=== PATIENT | female | born 1995 | race Caucasian/White ===

== ENCOUNTER → 2022-06-04 07:25 | Outpatient (CLI) | payer OTHER, SELFPAY ==
[2022-06-04 09:01] LABS: Add Manual Diff / Slide Review NO; Basophils Absolute Auto 0 /uL (0-100); Basophils Percent Auto 0.4 % (0-2); Eosinophils Absolute Auto 100 /uL (0-450); Eosinophils Percent Auto 1.1 % (2-4); Hemoglobin 13.3 g/dL (12.0-16.0); Lymphocytes Absolute Auto 1800 /uL (1100-4500); Mean Corpuscular HGB Conc 35.1 % (30-36); Mean Corpuscular Hemoglobin 31.7 PG (26-34); Mean Corpuscular Volume 90.2 fL (80-100); Monocytes Absolute Auto 600 /uL (0-900); Monocytes Percent Auto 6.7 % (3-14); Neutrophils Absolute Auto 6800 /uL (1500-7000); Neutrophils Percent Auto 72.8 % (50-75); Platelet Count 236 X10^3/uL (150-400); Red Blood Cell Count 4.21 X10^6/uL (4.0-5.2); Red Cell Distribution Width 12.9 % (11.6-14.8); White Blood Cell Count 9.4 X10^3/uL (4.5-11.0)
[2022-06-04 09:24] LABS: Appearance Urine UA CLEAR; Bilirubin Urine UA NEGATIVE (NEGATIVE); Color Urine UA YELLOW; Glucose Urine UA TRACE g/dL (Negative); Ketones Urine UA NEGATIVE (NEGATIVE); Leukocyte Esterase Urine UA NEGATIVE (NEGATIVE); Nitrite Urine UA NEGATIVE (Negative); Occult Blood Urine UA TRACE-INTACT (Negative); Protein Urine UA NEGATIVE (Negative); Specific Gravity Urine UA 1.025 (1.000-1.035); Urobilinogen Urine UA 0.2 E.U./dL (0.2)
[2022-06-05 04:54] LABS: RPR Screen Non Reactive (Non Reactive)
[2022-06-05 09:09] LABS: Varicella IgG Antibody 380 index (Immune >165)
[2022-06-05 17:05] LABS: Hepatitis B Surface Antigen NEGATIVE s/c (NEGATIVE); Rubella Antibody IgG 10.5 IU/mL (>15)
[2022-06-05 17:15] LABS: HIV 1 & 2 Ab/Ag 4th Gen Combo NEGATIVE (NEGATIVE); Hep C Virus Ab w/Reflex Quant NEGATIVE s/c (NEGATIVE)
== END ==
PROVIDERS: Obstetrics & Gynecology; Referring Provider Family Medicine; Visit Provider Family Medicine
DX: Z34.81 Encounter for supervision of other normal pregnancy, first trimester (principal)
CPT/HCPCS: 36415; 80055; 81003; 86787; 86803; 86850; 86900; 86901; 87086; 87389

== ENCOUNTER → 2022-06-27 11:39 | Outpatient (ROUT) | payer OTHER, SELFPAY ==
[2022-06-27 13:10] LABS: Urine N gonorrhoeae NOT DETECTED
[2022-06-27 13:23] LABS: Urine Chlamydia NOT DETECTED
== END ==
PROVIDERS: Visit Provider Obstetrics & Gynecology
DX: Z34.81 Encounter for supervision of other normal pregnancy, first trimester (principal); Z3A.13 13 weeks gestation of pregnancy
CPT/HCPCS: 87491; 87591

== ENCOUNTER → 2022-07-25 10:44 | Outpatient (CLI) | payer OTHER, SELFPAY ==
[2022-07-25 12:05] LABS: Specimen Label y
[2022-07-27 21:09] LABS: AFP Value 67.6 ng/mL (.); Gest Age on Col Date 17.1 weeks (.); Insulin Dep Diabetes No (.); OSBR Risk 1IN 965 (.); Results Report (.); Test Results *Screen Negative* (.)
== END ==
PROVIDERS: Referring Provider Obstetrics & Gynecology; Visit Provider Obstetrics & Gynecology
DX: Z34.82 Encounter for supervision of other normal pregnancy, second trimester (principal); Z3A.17 17 weeks gestation of pregnancy
CPT/HCPCS: 36415; 82105

== ENCOUNTER → 2022-08-15 10:40 | Outpatient (CLI) | payer OTHER, SELFPAY ==
--- NOTE | 2022-08-15 10:42 | DI.US.S_ITS ---
PROCEDURE: US OB >= 14 WEEKS FETUS INDICATIONS: 20 WEEK ANATOMY SCAN OUTSIDE/PRIOR DATING DATA: Last menstrual period (LMP): 03/27/2022. LMP-based estimated date of delivery (RICCI): 01/01/2023. First dating scan (date and location): 05/21/2022. Estimated date of delivery (RICCI) from first dating scan: 01/03/2023. TECHNIQUE: Real-time scanning was performed of the fetus, with image documentation and biometric measurements. Endovaginal scanning: Not performed COMPARISON: None. FINDINGS: General: A single living intrauterine gestation is present. Presentation: Variable. Placenta: Placental position is anterior , without previa. At the left aspect of the placenta there is an avascular region which is hypoechoic to the placenta and appears retroplacental. It measures approximately 7.6 x 2.6 x 2.2 centimeters. Amniotic fluid index: 12.4 cm, normal range is 5-24 cm. Single deepest vertical pocket is 3.9 cm. heart rate: 155 beats per minute. Maternal cervical canal: 4.8 cm long. Normal lower limit is 2.5 cm. biometrics: Biparietal diameter: 4.7 centimeters, 20 weeks 1 day Head circumference: 17.6 centimeters, 20 weeks 1 day Abdominal circumference: 15.8 centimeters, 21 weeks 0 days Femur length: 3.1 centimeters, 19 weeks 5 days Composite gestational age from present scan: 20 weeks 2 days Estimated weight and percentile: 348 grams, 57th percentile Anatomic survey: Neuro: Ventricles are non-dilated at less than 10 mm. Cisterna magna is normal at 3-11 mm. Cerebellum is normal in size and morphology. Nuchal skin fold: Normal at less than 6 mm between 14-21 weeks gestational age. Face: Nose and lips, facial profile are not well visualized Spine: No evidence for spina bifida. Heart: 4-chambered heart is present. Ventricular outflow tracts not well visualized. Diaphragm: Diaphragm is intact. Stomach: Left-sided stomach is present. Kidneys: No hydronephrosis. Normal is less than 5 mm in 2nd trimester, less than 7 mm in 3rd trimester. Cord: 3-vessel cord has orthotopic insertion. Bladder: Normal in size. Extremities: All 4 extremities identified. IMPRESSION: 1. Single living intrauterine . 2. nose/lips, facial profile, and ventricular outflow tracts were not well visualized. Short-term follow-up for completion of the anatomy survey and follow-up of the below placental finding is recommended. 3. A 7.6 centimeter hypoechoic region is present at the left aspect of the placenta. This may represent a placental lee but subacute abruption is difficult to exclude. Attention on follow-up is recommended. 4. Visualized anatomy is within normal limits. We strive to produce accurate, complete, and clear reports of imaging services. To assist us in improving patient care, this report was composed using standard report templates and voice recognition software. Therefore, it may contain abnormal punctuation, insertions and/or omissions. Occasional wrong-word or sound-alike substitutions may occur. Though we review the report and make efforts to correct it, we do recommend that the report be read carefully in proper context to recognize any text inaccuracies. Dictated by: Norman Cole M.D. on 08/15/2022 at 20:05 Approved by: Norman Cole M.D. on 08/15/2022 at 20:21
== END ==
PROVIDERS: Referring Provider Obstetrics & Gynecology; Visit Provider Obstetrics & Gynecology
DX: Z34.82 Encounter for supervision of other normal pregnancy, second trimester (principal); Z3A.20 20 weeks gestation of pregnancy
CPT/HCPCS: 76811

== ENCOUNTER → 2022-09-03 09:16 | Outpatient (CLI) | payer OTHER, SELFPAY ==
--- NOTE | 2022-09-03 09:16 | DI.US.S_ITS ---
PROCEDURE: US OB FOLLOW UP INDICATIONS: FOLLOW UP ANATOMY AND RETROPLACENTAL AREA OUTSIDE/PRIOR DATING DATA: Last menstrual period (LMP): March 27, 2022. LMP-based estimated date of delivery (RICCI): January 01, 2023. First dating scan (date and location): May 21, 2022. Estimated date of delivery (RICCI) from first dating scan: January 03, 2023. TECHNIQUE: Real-time scanning was performed of the fetus, with image documentation and biometric measurements. COMPARISON: [facility], US, US OB <= 14 WEEKS FETUS, 05/21/2022, 15:39. Ob ultrasound dated August 15, 2022 FINDINGS: General: A single living intrauterine gestation is present. Presentation: Variable. Placenta: Placental position is anterior , without previa. Amniotic fluid index: 14.3 cm, normal range is 5-24 cm. Single deepest vertical pocket is 4.7 cm. heart rate: 160 beats per minute. Maternal cervical canal: 5.0 cm long. Normal lower limit is 2.5 cm. biometrics: Clinically estimated gestational age: 22 weeks, 6 days Anatomic survey: Face: Nose and lips, facial profile are normal. Heart: 4-chambered heart is present, with normal ventricular outflow tracts. IMPRESSION: 1. Single live intrauterine gestation in variable position. 2. Nose and lips, facial profile, and 4 chambered heart and outflow tracts have a normal sonographic appearance. We strive to produce accurate, complete, and clear reports of imaging services. To assist us in improving patient care, this report was composed using standard report templates and voice recognition software. Therefore, it may contain abnormal punctuation, insertions and/or omissions. Occasional wrong-word or sound-alike substitutions may occur. Though we review the report and make efforts to correct it, we do recommend that the report be read carefully in proper context to recognize any text inaccuracies. Dictated by: Nidhi Stanton M.D. on 09/03/2022 at 12:44 Approved by: Nidhi Stanton M.D. on 09/03/2022 at 12:49
== END ==
PROVIDERS: Referring Provider Obstetrics & Gynecology; Visit Provider Obstetrics & Gynecology
DX: Z36.2 Encounter for other antenatal screening follow-up (principal); Z3A.22 22 weeks gestation of pregnancy
CPT/HCPCS: 76816

== ENCOUNTER → 2022-10-10 10:24 | Outpatient (CLI) | payer OTHER, SELFPAY ==
[2022-10-10 12:30] LABS: Hematocrit 35.4 % (36-46)
[2022-10-10 12:37] LABS: GTT (PREG) 1 Hour PP 50gm Dose 130 mg/dL (76-139)
== END ==
PROVIDERS: Referring Provider Obstetrics & Gynecology; Visit Provider Obstetrics & Gynecology
DX: Z34.82 Encounter for supervision of other normal pregnancy, second trimester (principal); Z3A.26 26 weeks gestation of pregnancy
CPT/HCPCS: 36415; 82950; 85014; 85018

== ENCOUNTER → 2022-12-06 09:41 | Outpatient (CLI) | payer OTHER, SELFPAY ==
[2022-12-07 15:27] LABS: Strep Grp B PCR NEG for Grp B Strep
== END ==
PROVIDERS: Visit Provider Physician Assistant Medical
DX: Z34.83 Encounter for supervision of other normal pregnancy, third trimester (principal); Z3A.36 36 weeks gestation of pregnancy
CPT/HCPCS: 87653

== ENCOUNTER 2022-12-30 19:22 | Inpatient (IN) | payer OTHER, SELFPAY ==
[2022-12-30] MEDS: miSOPROStoL 100 MCG TABLET 25 MCG PO (22:18)
[2022-12-30 22:31] VITALS: BP 116/69
[2022-12-30 23:16] LABS: Add Manual Diff / Slide Review NO; Basophils Absolute Auto 0 /uL (0-100); Basophils Percent Auto 0.2 % (0-2); Eosinophils Absolute Auto 100 /uL (0-450); Eosinophils Percent Auto 1.1 % (2-4); Hematocrit 35.8 % (36-46); Hemoglobin 12.2 g/dL (12.0-16.0); Lymphocytes Absolute Auto 2100 /uL (1100-4500); Lymphocytes Percent Auto 17.4 % (25-40); Mean Corpuscular HGB Conc 34.1 % (30-36); Mean Corpuscular Volume 90.8 fL (80-100); Monocytes Absolute Auto 900 /uL (0-900); Monocytes Percent Auto 7.7 % (3-14); Neutrophils Absolute Auto 8900 /uL (1500-7000); Neutrophils Percent Auto 73.6 % (50-75); Platelet Count 210 X10^3/uL (150-400); Red Blood Cell Count 3.94 X10^6/uL (4.0-5.2); Red Cell Distribution Width 14.7 % (11.6-14.8)
[2022-12-31] MEDS: LACTATED RINGERS 1,000 ML 100 ML IV ×3 (02:29→17:19)
--- NOTE | 2022-12-31 08:53 | DIET.CONS2 ---
Dietary Inpatient Consultation Note Admission Date: 12/30/2022 19:22 Pt called kitchen during breakfast service requesting: cottage cheese c fruit, honey yogurt and a breakfast sandwich. Pt diet order stated Clear Liquid. RD called Nurse station to inquire if pt was safe for solid PO intake at this time. Nursing stated yes, changed pt to General Diet at 8:51am. Kitchen to send breakfast to patient per request. Diet: 12/30/22 Breakfast Clear Liquid Diet Diet Modifications: 12/31/22 Lunch General (Regular) Diet Diet Modifications: Electronically Signed by: Stephanie Stuart 12/31/22 08:53 Clinical Dietitian [address] [address]
--- NOTE | 2022-12-31 12:42 | PM.OBPNLAB ---
Date/Time Date Patient Seen: 12/31/22 Time Patient Seen: 12:40 Pain Control Pain control: tolerating well Comments: Feeling pressure with contractions, resting well in between. Utilizing nitrous oxide to good effect. Pelvic Exam Dilation (cm): 8 Effacement (%): 100 station: 0 Amniotic membrane status: Ruptured Contractions Monitor mode: External Contraction frequency (min): 5 Status status: Category ll Heart Rate Baseline: 140 Monitor Accelerations: Present Monitor Decelerations: Variable (intermittent) Monitor Variability: Moderate Assessment and Plan Assessment: active labor Plan: continuous present management Comments: 27 year old at 39+6 weeks in active labor. SROM with clear fluid last night about 6 PM. GBS negative. She is coping well though making slow progress since this morning. Suspect acynclitic. Encouraged position change. Did not discuss epidural with patient but may want to consider if not progressing over the next 1-2 hours.
[2022-12-31] MEDS: OXYTOCIN PREMIX 30 UNIT/500 ML PLAST..BAG IV (14:41)
--- NOTE | 2022-12-31 15:16 | PM.OBHP.IH.1 ---
OB HPI Date/Time Date of admission: 12/30/22 Date Patient Seen: 12/31/22 Time Patient Seen: 07:50 History of Present Condition Chief complaint: Eval of Labor RICCI Calculator Estimated Delivery Date Method Current WG Current Estimate 01/01/23 LMP (Certain) 39w 6d Other Estimates 01/03/23 Ultrasound #1 39w 4d Estimated Gestational Age (weeks): 39+6 : 2 Para: 0 Narrative: Called to see pt for decel for 4 min. care: good care, initiated at week # (7), number of visits (13) and pounds weight gain (52) Dating criteria OB: LMP confirmed by 1st trimester US Ultrasounds: normal 1st trimester US and normal mid trimester US Obstetrical complications: none Medical complications OB: none Indications Indication for induction OB: other (non medical) Preadmission Labs Last OB Lab Results: Blood Type A Positive 12/30/22 22:15 Antibody Screen Negative 12/30/22 22:15 Hematocrit 35.8 % (36-46) L 12/30/22 22:15 Hemoglobin 12.2 g/dL (12.0-16.0) 12/30/22 22:15 Hepatitis B Surface Antigen Negative s/c (NEGATIVE) 06/04/22 08:02 Hepatitis C Antibody Negative s/c (NEGATIVE) 06/04/22 08:02 Rubella Antibody 10.5 IU/mL (>15) L 06/04/22 08:02 Varicella-Zoster IgG Antibody 380 index (Immune >165) 06/04/22 08:02 Glucose 1 Hour 130 mg/dL (76-139) 10/10/22 10:41 Group B Streptococcus (PCR) Neg for grp b strep 12/06/22 09:41 -: Chlamydia screen: negative, Gonorrhea screen: negative and Urine: negative -: PAP smear: Normal Genetic Screens: Cell-free DNA: Normal (normal male) and Alpha-fetoprotein: Normal External Labs -: Urine: negative Prior (ies) Past Pregnancies Del. Date GA/Weeks Labor Lgth Wt Sex Route Outcome Anesthesia Place Delv Breastfeed Preg Comp Name 07/28/15 14 elective [place] Delivery Date: 07/28/15 Last Updated by: Teresa Valdez RN outpatient D&C Evaluation Evaluation Baseline heart rate: 135 Variability: Moderate (11-25) monitor accelerations: Present Monitor Decelerations: Prolonged (x 4 min) Contraction Frequency (minutes): 3 Uterine Contraction Intensity: Strong/Firm Status: Category ll Dilation (cm): 7 Effacement (%): 100 station: -1 [facility] Medical History (Updated 12/20/22 @ 11:15 by Ronald Vasquez MD) Herpes (~2020) Tinea versicolor (~2016) Surgical History (Updated 07/24/22 @ 21:11 by Mattie Sawyer) S/P ASA/PRK (advanced surface ablation photorefractive keratectomy) (~02/2018) [place] teeth extracted (~04/2019) Family History (Updated 07/24/22 @ 21:19 by Mattie Sawyer) Mother Diabetes mellitus Hypothyroid Sleep apnea Father Hypertension Obstructive sleep apnea Diabetes mellitus Hypercalcemia Grandfather Cancer Diabetes mellitus Hypertension Grandmother Diabetes mellitus Alzheimers disease Hyperlipidemia Hypertension Grandfather Diabetes mellitus Colon cancer Obesity Hypertension Prostate cancer BBB (bundle branch block) History of heart disease Hyperlipidemia Mental health problem History of pacemaker Grandmother Hyperlipidemia Glaucoma BBB (bundle branch block) History of heart disease Hypertension Mental health problem Family/Other Diabetes mellitus Sister Diabetes mellitus History of PCOS Secondary amenorrhea Mental health problem Sister Asthma Social History marital status: number of children: 0 household members: friend(s) lives independently: Yes housing: house pets and animals: Yes (3 dogs) education level: high school occupational status: employed (active duty, on a desk job for ) current occupational exposures/hazards: No special kishore needs: No travel history: recent ([place], [place]) seatbelt use: always water heater temp set < 120 deg: Yes working smoke detector in home: Yes fire extinguisher in home: Yes carbon monox detector in home: Yes firearms in home: No do you feel safe at home: Yes Smoking Status: Former smoker second hand exposure: Yes (roommate vapes) alcohol intake: former substance use type: marijuana (many years ago, no longer) during the past year weight has: remained stable well-balanced diet: daily or most days daily servings fruits/ve or more times/day caffeine: No Type(s) of exercise: walking and aerobic additional social history: Previously treated with Zoloft, Vistaril, and Trazodone; weaned off all meds in February. Meds Home Medications and Allergies Home Medications Medication Instructions Recorded Confirmed Type prenat.vits,dean,vyp-xwsw-qbrnp 1 tab PO DAILY 05/16/22 12/30/22 History sertraline 50 mg tablet 50 mg PO DAILY #90 tabs 10/25/22 12/30/22 Rx valacyclovir 500 mg tablet 500 mg PO Q12H #60 tabs 11/26/22 12/30/22 Rx Allergies Allergy/AdvReac Type Severity Reaction Status Date / Time Penicillins Allergy Intermediate Hives Verified 12/27/22 15:28 OB Exam Narrative Exam Narrative: Patient on hands and knees, no acute distress Fundal height: 40 cm Estimated weight: 8 lb Extremities: Trace edema Objective Labs 12/30/22 22:15 Labs: Laboratory Results - last 24 hr 12/30/22 12/30/22 22:15 22:15 WBC 12.0 H RBC 3.94 L Hgb 12.2 Hct 35.8 L MCV 90.8 MCH 31.0 MCHC 34.1 RDW 14.7 Plt Count 210 Neut % (Auto) 73.6 Lymph % (Auto) 17.4 L Mclennan % (Auto) 7.7 Eos % (Auto) 1.1 L Baso % (Auto) 0.2 Neut # (Auto) 8900 H Lymph # (Auto) 2100 Mclennan # (Auto) 900 Eos # (Auto) 100 Baso # (Auto) 0 Blood Type A Positive Antibody Screen Negative Assessment and Plan Assessment and Plan Assessment and Plan narrative: Assessment: 27-year-old 2 para 0 at 39-,6/7 weeks gestation status post Cytotec x1 last evening Active labor 4 minute deceleration, which has resolved Patient tolerating contractions with nitrous oxide Plan: scalp electrode placed O2 per face mask Fluid bolus Time Spent with Patient Total time spent with greater than 50% in coordination of care (as documented) at patient's floor/unit and/or counseling patient:: 25 - 35 minutes
--- NOTE | 2022-12-31 17:01 | PM.OBPNLAB ---
Date/Time Date Patient Seen: 12/31/22 Time Patient Seen: 17:00 Pain Control Pain control: epidural Pelvic Exam Dilation (cm): 8 Effacement (%): 100 station: 0 Amniotic membrane status: Ruptured Contractions Monitor mode: External Contraction frequency (min): 7 Contraction intensity: Strong/Firm Status status: Category l Heart Rate Baseline: 150 Monitor Accelerations: Present Monitor Decelerations: Absent Monitor Variability: Moderate Assessment and Plan Plan: continuous present management Comments: 27-year-old at 39 weeks and 6 days gestation. She presented after SROM last night at approximately 6:30 p.m. with clear fluid. She progressed well overnight and was 7-8 cm at 8:00 a.m. this morning. Progress has been minimal throughout the day with contractions ranging 5-7 minutes apart. Patient wished for a low intervention labor but agreed to Pitocin which was started at 2:45 p.m.. Shortly after starting Pitocin patient requested an epidural and Pitocin was shut off. She is now comfortable with an epidural and in agreement with Pitocin augmentation. Suspect acynclitic position of the head preventing cervix from dilating. Encouraged frequent position change and peanut ball to help facilitate descent and rotation. Titrate Pitocin per protocol. Dr. Khalil will assume care overnight. Transition of care was discussed with the patient and her mother.
[2022-12-31] MEDS: diphenhydrAMINE 50 MG/ML VIAL 25 MG IV (17:11)
[2022-12-31] MEDS: FENT 2MCG/ML BUPIV 0.125% EPI 200 MCG/100 ML PLAST..BAG 12 MCG EPIDURAL (21:35)
--- NOTE | 2022-12-31 23:12 | P.PNOB_ITS ---
Date/Time Date Patient Seen: 12/31/22 Time Patient Seen: 23:12 Pain Control Pain control: tolerating well and epidural Pelvic Exam Dilation (cm): 7 Effacement (%): 100 station: 0 Amniotic membrane status: Ruptured Comments: Cervix is 7-8 cm and circumferentially edematous, head well applied, + caput, position JADEN, sutures overriding Contractions Contractions on admission: irregular Monitor mode: External Pitocin rate (mU/min): 6 Contraction frequency (min): 3 Contraction duration (min): 1 Contraction pattern: Regular Contraction phase: Resting Contraction intensity: Strong/Firm Status status: Category l Heart Rate Baseline: 145 Monitor Accelerations: Present Monitor Decelerations: Absent Monitor Variability: Moderate Assessment and Plan Assessment: induction ongoing Plan: Comments: Call responsibilitites assumed due to attending provider illness. Chart reviewed and patient examined after 4 hours of pitocin restart/augmentation with no significant change from exams this AM. Options discussed at length with patient and her mother who is at the bedside with the patient. After discussion of alternatives, risks, benefits, and potential complications, will proceed to p rimary CS by LTC due to secondary arrest of labor due to CPD. OR/Staff notified, consent executed.
[2022-12-31] MEDS: CEFAZOLIN 2 GM/100 ML PREMIX 100 ML IV (23:33)
[2022-12-31] MEDS: CITRIC ACID/SODIUM CITRATE 15 ML SOLUTION 30 ML PO (23:33)
[2023-01-01] VITALS (11 sets, daily range): BP systolic 89–105; BP diastolic 34–57; PULSE 68–107; RESP 11–21; TEMP 36.4–37.9; O2SAT 98–99
[2023-01-01] MEDS: AZITHROMYCIN 500 MG in DEXTROSE 5% IN WATER 250 ML 250 MG IV
--- NOTE | 2023-01-01 00:06 | SUR.OPER ---
Supine on Padded OR bed, head on pillow, safety belt at thigh, arms secured on padded arm boards at <90 degrees abduction. Bump under right buttock. Legs uncrossed with pillow under knees, gel pad to heels, tape over blanket to lower legs.
--- NOTE | 2023-01-01 00:28 | SUR.OPER ---
VIABLE MALE INFANT DELIVERED AT 0017. CORD BLOOD AND PLACENTA TO OB WITH RN
--- NOTE | 2023-01-01 01:18 | P.OP_ITS ---
Operative Date/Time/Diagnoses Date of procedure: 12/31/22 Time of procedure: 23:55 Pre-op diagnosis: Intrauterine gestation, genao, 39+6 weeks EGA Secondary arrest of labor due to cephalo-pelvic dysproportion Post-op diagnosis: same Procedure & Clinicians Procedure: Primary section (Low transverse cervical) Same procedure as scheduled: Yes Indications: 27 yo at 39+6 weeks EGA w/ secondary arrest at C/7/-8/0 for greater than 6 hrs. despite adequate, pitocin augmented contractions. Surgeon: Gadiel Khalil Click Yes if Unassisted: Yes Reason for Store Specialist: Store Specialist required for the safe, effective, and timely completion of this surgery. Anesthesia Type: Spinal Operative Notes Findings: Viable male infant BW [], Apgars []/[], delivered from the [] presentation. Normal gravid anatomy. Closure Type: primary Specimen(s): cord blood Intraoperative meds administered: Ketorolac and Pitocin Applied: Catheter Estimated Blood Loss (mL): 800 Blood products transfused: none Procedure in detail: With her informed written consent, the patient was taken to the operating room and placed in the supine position for a primary section procedure, for the indication(s) above. The abdomen was prepped and draped in the usual manner for section and a pre-surgical timeout was taken per [facility] OR protocol. Once effective anesthesia was confirmed, a 15 cm transverse Pfannenstiel incision was made in the skin and taken down through the subcutaneous tissues to the deep fascia. The deep fascia was incised transver sely, the rectus abdominal eyes bluntly and sharply, and the peritoneal cavity entered without difficulty. The lower uterine segment was visualized and the position/presentation palpated. A transverse incision at or above the vesicouterine reflection was made with Metzenbaum scissors and transverse hysterotomy performed near the midline. Amniotomy revealed clear fluid. The incision was extended bilaterally with digital traction and the infant was delivered without difficulty from the vertex presentation. The infant was vigorous and cord clamping delayed for 60 seconds. The placenta was delivered intact using gentle cord traction and fundal massage.The uterine cavity was then cleared of any clot/debris first with a sloppy wet lap tape followed by a dry lap tape. Ring forceps were then applied to the angles and the midline of the incised MEAGHAN. A primary closure of the uterus was then accomplished with #1 CCGS in a running interlocking stitch followed by a 2nd layer of #1 CCGS in a running interlocking imbricating stitch. No additional sutures was/were required to achieve complete hemostasis. Once pelvic hemostasis was assured, the bladder flap and anterior peritoneum were closed with a running 2-0 Vicryl suture and the fascia closed with #1 Vicryl in a running stitch initiated at both angles and tying separately near the midline. The subcutaneous tissues were reapproximated with 2-0 plain catgut suture using inverted interrupted stitches. The skin edges were then brought together with 4-0 Monocryl in a subcuticular closure and the incision was reinforced with 1 Steri-Strips. An appropriate compression dressing was applied and the patient transferred to PACU for recovery and subsequent transfer to the Center for recuperation. Complications: none [place] Baby 1: Infant Gender: Male Presentation: vertex Position: Left Occiput Anterior Placental Delivery Description: Spontaneous Cord Vessel Description: 3 Vessels score (1 min): 8 score (5 min): 9 weight: 8 lb 7.558 oz Post-operative Condition: stable Disposition: PACU Aftercare: routine postop
[2023-01-01] MEDS: KETOROLAC 30 MG/ML VIAL IV ×3 (03:58→15:31)
[2023-01-01] MEDS: ACETAMINOPHEN 325 MG TABLET 650 MG PO ×4 (03:59→21:33)
[2023-01-01] MEDS: OXYCODONE IR 5 MG TABLET PO ×3 (08:01→19:40)
[2023-01-01] MEDS: SERTRALINE 50 MG TABLET PO (09:51)
[2023-01-01] MEDS: PRENATAL VIT,CALC/IRON/FOLIC 1 TABLET 1 TAB PO (09:51)
--- NOTE | 2023-01-01 13:31 | PM.OBPN.1 ---
Subjective - OB Subjective Patient comments: no complaints, pain well controlled, incisional pain and tolerating diet; no flatus present [place] baby status: doing well [place] feeding status: exclusively breast feeding Narrative: Doing well overnight. Bleeding has steadily decreased. also doing well. She denies nausea and vomiting and is tolerating regular diet. Date Patient Seen: 01/01/23 Time Patient Seen: 13:32 Exam Vital Signs (past 8 hours): Oxygen Delivery Method Room Air Const General: cooperative and comfortable Nutritional Appearance: average body habitus Orientation: alert and oriented x3 HENMT Head: normal to inspection, atraumatic and abrasion Ears: hearing grossly normal bilaterally Face and sinus: face symmetric Eyes General: appearance normal, both eyes and all related structures Conjunctivae: conjunctivae normal Sclera: sclerae normal EOM: EOM intact bilaterally Neck Neck: normal visual inspection Resp Effort & Inspection: normal respiratory effort and able to speak in complete sentences Auscultation: clear to auscultation bilaterally Cardio Rate: regular rate Rhythm: regular rhythm Heart Sounds: S1 normal, S2 normal and no murmurs GI Inspection: normal to inspection and incision (Surgical dressing clean and dry) Palpation: soft, no hepatosplenomegaly, mass (Fundus firm, minimally tender, U -2.) and tender (Mild, diffuse postsurgical tenderness) Auscultation: hypoactive bowel sounds External Female Exam: other (No significant bleeding noted) Extrem General: no calf tenderness Psych Appearance: grossly normal Mental Status: mental status grossly normal Speech and Movement: speech and movement normal Mood: congruent mood Affect: normal affect Attitude: cooperative Thought Process: normal Thought Content: normal Judgment: judgment good Objective Labs 12/30/22 22:15 Assessment & Plan Plan day: 0 plan OB: routine postop care Comments: Anticipate possible discharge, 01/02/2023. Time Spent With Patient Time: Total time spent is greater than 50% in coordination of care (as documented) at patient's floor/unit and/or counseling patient: Time with patient: 15-24 minutes
[2023-01-01] MEDS: ACYCLOVIR 400 MG TABLET PO ×2 (15:32→21:33)
[2023-01-01 16:15] LABS: Add Manual Diff / Slide Review NO; Basophils Absolute Auto 100 /uL (0-100); Basophils Percent Auto 0.3 % (0-2); Eosinophils Absolute Auto 100 /uL (0-450); Eosinophils Percent Auto 0.3 % (2-4); Hematocrit 29.6 % (36-46); Lymphocytes Absolute Auto 1400 /uL (1100-4500); Lymphocytes Percent Auto 7.8 % (25-40); Mean Corpuscular HGB Conc 33.8 % (30-36); Mean Corpuscular Hemoglobin 30.8 PG (26-34); Mean Corpuscular Volume 91.2 fL (80-100); Monocytes Absolute Auto 1500 /uL (0-900); Monocytes Percent Auto 8.2 % (3-14); Neutrophils Absolute Auto 15400 /uL (1500-7000); Neutrophils Percent Auto 83.4 % (50-75); Platelet Count 196 X10^3/uL (150-400); Red Blood Cell Count 3.24 X10^6/uL (4.0-5.2); Red Cell Distribution Width 14.8 % (11.6-14.8); White Blood Cell Count 18.4 X10^3/uL (4.5-11.0)
[2023-01-01] MEDS: IBUPROFEN 600 MG TABLET PO (21:57)
[2023-01-02] MEDS: IBUPROFEN 600 MG TABLET PO ×2 (03:56→10:36)
[2023-01-02] MEDS: ACETAMINOPHEN 325 MG TABLET 650 MG PO ×2 (03:57→10:35)
[2023-01-02] MEDS: SERTRALINE 50 MG TABLET PO (09:09)
[2023-01-02] MEDS: ACYCLOVIR 400 MG TABLET PO (09:09)
[2023-01-02] MEDS: PRENATAL VIT,CALC/IRON/FOLIC 1 TABLET 1 TAB PO (09:09)
--- NOTE | 2023-01-02 13:11 | P.DS_ITS ---
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 Despite Pitocin augmentation and placement of c ontinuous lumbar epidural catheter for pain relief in labor, the patient failed to progress beyond 7-8 cm where she remained for approximately 6 hours. Late on the evening of 12/31/2022 the decision was made to proceed to primary section due to secondary arrest of labor due to cephalopelvic disproportion. She was delivered by primary section early on the morning of 01/01/2023 and details of that procedure well summarized on my operative note of that date. Following her surgery both mother and baby have done extremely well with the mother having prompt return of bowel and bladder function, she is ambulating independently, tolerating regular diet, and her pain is well controlled with oral pain medications. She will be discharged at this time to home in an afebrile normotensive condition after counseling regarding precautionary symptoms, limitations activity, medications, plans for follow-up which will be 1 week. Medications at discharge will include continuation of all of her pre delivery medications and oxycodone 5 mg p.o. q.6 hours as needed pain dispense 20, ibuprofen 600 mg p.o. q.6 hours as needed pain, dispense 30 with 2 refills, and Colace 200 mg p.o. b.i.d. as needed constipation. Peripartum Data Delivery Method: Section Laceration Description: None Episiotomy description: None Procedures: Continuous lumbar epidural placement Primary section, low transverse cervical complications: none 1: Gender: Male Disposition of : home Status at Discharge Cognitive/behavioral status at discharge: oriented Functional status at discharge: independent ambulation Overall status at discharge: patient is progressing back to baseline Time Spent with Patient Time attestation: Total time spent providing and/or coordinating discharge services: Time spent: Less than 30 minutes Objective Labs 01/01/23 15:22 Labs: Laboratory Results - last 24 hr 01/01/23 15:22 WBC 18.4 H D RBC 3.24 L Hgb 10.0 L Hct 29.6 L MCV 91.2 MCH 30.8 MCHC 33.8 RDW 14.8 Plt Count 196 Neut % (Auto) 83.4 H Lymph % (Auto) 7.8 L Gordon % (Auto) 8.2 Eos % (Auto) 0.3 L Baso % (Auto) 0.3 Neut # (Auto) 74454 H Lymph # (Auto) 1400 Gordon # (Auto) 1500 H Eos # (Auto) 100 Baso # (Auto) 100 Exam Vital Signs (past 8 hours): Oxygen Delivery Method Room Air Const General: cooperative and comfortable Nutritional Appearance: average body habitus Orientation: alert and oriented x3 HENMT Head: normal to inspection, atraumatic and abrasion Ears: hearing grossly normal bilaterally Face and sinus: face symmetric Eyes General: appearance normal, both eyes and all related structures Conjunctivae: conjunctivae normal Sclera: sclerae normal EOM: EOM intact bilaterally Neck Neck: normal visual inspection Resp Effort & Inspection: normal respiratory effort and able to speak in complete sentences Auscultation: clear to auscultation bilaterally Cardio Rate: regular rate Rhythm: regular rhythm Heart Sounds: S1 normal, S2 normal and no murmurs GI Inspection: normal to inspection and incision (Compression dressing removed, incision intact, AquaCel applied) Palpation: soft, no hepatosplenomegaly, mass (Firm, mildly tender fundus, U -4) and tender (Mild, diffuse postsurgical tenderness) Auscultation: normal bowel sounds External Female Exam: other (No significant bleeding noted) Extrem General: no calf tenderness Psych Appearance: grossly normal Mental Status: mental status grossly normal Speech and Movement: speech and movement normal Mood: congruent mood Affect: normal affect Attitude: cooperative Thought Process: normal Thought Content: normal Judgment: judgment good Discharge Plan Discharge Plan Patient Disposition: Home Provider Discharge Comment: Please review the written instructions you received when you were discharged from the hospital. Your follow-up appointment will be scheduled for 1 week after your and I forward to seeing you then. If however in the meanwhile you have any issues, concerns, or questions, please contact me either through the office phone at [phone], or via the patient portal. Discharge orders & Medications Prescriptions: New ibuprofen 600 mg Tablet 600 mg PO Q6H Qty: 30 2RF oxycodone 5 mg Tablet 5 mg PO Q4H PRN (Reason: Pain, Moderate (4-6)) Qty: 20 0RF docusate calcium 240 mg capsule 240 mg PO BID PRN (Reason: constipation) Qty: 30 0RF Continued sertraline 50 mg tablet 50 mg PO DAILY Qty: 90 2RF valacyclovir 500 mg tablet 500 mg PO Q12H Qty: 60 1RF prenat.vits,dean,kzt-knew-nsmgp Tablet 1 tab PO DAILY Follow up/Referrals: ProviderRay [Primary Care Provider] - Gadiel Khalil MD [Physician] - Discharge Health Status Multidrug resistant organism: No MDRO Diet/Activity/Treatments Diet: Diet as Tolerated Activity: As tolerated Other treatments: [id number]-[id number] Tylenol may also be used for additional pain relief. Kiza-gyv-[id number] MiraLax may also be used as needed for constipation Skin/Wound/Dressing Care Report to your healthcare provider any signs of infection, such as:: chills, fever, increased pain, unusual drainage and unusual redness Dressing: Dressing will be removed at the time of your 1 week postop visit Visit Report/Discharge Packet Instructions: DI for , DI for and Nipple Soreness, DI for Prescription Opioid Use Discharge Data Primary Care Provider: ProviderRay
[2023-01-02] MEDS: MEASLES,MUMPS,RUBELLA VACC/PF 0.5 ML VIAL SUBCUT (14:09)
== END 2023-01-02 15:30 | disposition home or self-care (01) | DRG 788 ==
PROVIDERS: Obstetrics & Gynecology; Admitting Provider Obstetrics & Gynecology; Referring Provider Obstetrics & Gynecology; Visit Provider Obstetrics & Gynecology
PROC: 10D00Z1 Extraction of Products of Conception, Low, Open Approach (ICD-10-PCS; CPT 59514; principal; 2022-12-31 23:45)
DX: O65.4 Obstructed labor due to fetopelvic disproportion, unspecified (principal); O62.1 Secondary uterine inertia; O42.12 Full-term premature rupture of membranes, onset of labor more than 24 hours following rupture; O76 Abnormality in fetal heart rate and rhythm complicating labor and delivery; Z3A.39 39 weeks gestation of pregnancy; Z37.0 Single live birth
CPT/HCPCS: 36415; 59050; 59510; 59514; 85025; 86850; 86900; 86901; G0379; J0690; J1200; J1885; J2274; J2405; J2590

== ENCOUNTER → 2023-10-02 09:40 | Outpatient (CLI) | payer OTHER, SELFPAY ==
--- NOTE | 2023-10-02 | DI.RAD.S_ITS ---
PROCEDURE: FL BARIUM SWALLOW W SPEECH INDICATIONS: Dysphagia, unspecified COMPARISON: None. TECHNIQUE: Examination was conducted in conjunction with speech pathology per standard protocol. In the lateral projection, filming was performed of the patient swallowing. AP projection filming may also be performed with patient swallowing. COMPARISON: FINDINGS: Function: The oral preparatory phase appears normal, with proper containment. The subsequent oral propulsive phase, pharyngeal phase of swallowing also appear normal with all proffered substances. No laryngotracheal penetration or aspiration. No pathologic vallecular pooling. Noted is moderate esophageal dysmotility with tertiary contractions noted during the examination. This may represent esophageal inflammation of further evaluation is clinically indicated direct visualization may be of further clinical value. Morphology: No cricopharyngeal bar is identified. No cervical esophageal webs. No Zenker's diverticulum. No strictures. IMPRESSION: 1. Moderate esophageal dysmotility with tertiary contractions. Question whether this may be related to esophageal inflammation. If further evaluation clinically indicated direct visualization with endoscopy may be of further clinical value. Dictated by: Chinmay Strange M.D. on 10/02/2023 at 15:21 Approved by: Chinmay Strange M.D. on 10/02/2023 at 15:25
--- NOTE | 2023-10-02 14:46 | ST.SWALLOW ---
Visit Care Team Role Provider Type Ray CLAU Provider Primary Care Provider Non-Staff Specialty: Medical Address: Phone: Email: Sandee Newton Attending Provider Non-Staff Referring Provider Specialty: Medical Address: [address], [facility], [place], [address] Fax: Email: ST Modified Barium Swallow Study COST COORDINATOR Modified Barium Swallow Study Start: 10/02/23 14:02 Freq: Status: Active Protocol: Document 10/02/23 14:02 LNK (Rec: 10/02/23 14:46 LNK [id number]) Modified Barium Swallow Study Total Time Visit Start Time 10:00 Visit Stop Time 11:30 Total Visit Minutes [address] Sandee Newton Reason for Referral dysphagia Setting Setting Outpatient Care Patient Information Identification Type Name,Date of Patient History Pt was seen for a Modified Barium Swallow Study at the referral of her physician. According to the pt, she started to have difficulty with swallowing after she had a baby 9 months ago. She described her difficulty as primarily with breads, meats or sticky foods. She reported a globus sensation and sternal pressure while pointing to her sternal notch. She described an emesis of undigested food with SOB after eating a sandwich. She denied difficulty with liquids or pills. Subjective Observations Pt was seated in the fluoroscopy chair with procedures and instructions described for her. She indicated she understood and agreed to proceed. Patient Positioning Position View Lat-A/P Imaging Lateral View Textures Administered Trials Presented Thin Liquid via Spoon (IDDSI 0 ),Thin Liquid via Cup (IDDSI 0 ),Regular (IDDSI 7) Barium Tablet Yes The IDDSI Framework Protocol: IDDSI.1 Oral Impairment Source: The Modified Barium Swallow Impairment Profile (MBSImP??) Lip Closure No labial escape Tongue Control During Bolus Hold Cohesive bolus between tongue to palatal seal Bolus Preparation/Mastication Timely & efficient chewing & mashing Bolus Transport/Lingual Motion Brisk tongue motion Oral Residue Complete oral clearance Initiation of Pharyngeal Swallow Bolus head in valleculae Additional Oral Impairment Observations OME and DKS were observed to be WNL. Mastication was good with a rotary chew pattern. Bolus formation, control and AP transition were noted to be WNL. No oral residue observed following swallow trials. Pharyngeal Impairment Source: The Modified Barium Swallow Impairment Profile (MBSImP??) Soft Palate Elevation No bolus between soft palate & pharyngeal wall Laryngeal Elevation Comp.sup.move.thyroid cart.w/ comp.approx.arytenoids to epiglot petiole Anterior Hyoid Excursion Partial anterior movement Epiglottic Movement Complete inversion Laryngeal Vestibular Closure Complete; no air/contrast in laryngeal vestibule Pharyngeal Stripping Wave Present - complete Pharyngoesophageal Segment Opening Complete distention & complete duration; no obstruction of flow Tongue Base Retraction No contrast between tongue base & posterior pharyngeal wall Pharyngeal Residue Complete pharyngeal clearance Additional Pharyngeal Impairment Pharyngeal phase of swallow Observations was observed to be WNL. Good tongue base strength, hyolaryngeal elevation, epiglottic inversion, airway protection and PES opening noted. No pharyngeal residue observed following all trials. A/P View Textures Administered Trials Presented Thin Liquid via Cup (IDDSI 0) The IDDSI Framework Protocol: IDDSI.1 A/P View Observations Pharyngeal Contraction Complete Esophageal Clearance Upright Position Esophageal retention w/ regtrograde flow below pharyngoesoph segment Vocal Fold Function Good Esophageal Function Slowed Clearing,Poor Motility, Stasis Additional A-P Observations In the AP position, there was significant contrast remaining in her esophagus after the semi-solid and solid trials. Water was provided, which slowly cleared the contrast. The pt reported a globus sensation at that time. Thin barium and a barium tablet were cleared in a timely manner. The esophageal retention coincided with he pt report of difficulty with breads, sticky foods and meats but no difficulty with liquids or pills. A referral to GI is recommended for further assessment. No swallow therapy recommended. Clinical Impressions Dysphagia Type Esophageal Findings Oral and Pharyngeal swallow phases were observed to be functioning WNL. The pt's esophagus demonstrated contrast retention of the semi and solid trials. Several swallows of water were needed to clear the esophagus. Thin barium and the barium tablet cleared the esophagus in a timely manner. GI referral is recommended for further assessment. Patient Appropriate for Therapy No Recommendations Diet Comments No diet change is recommended at this time. Aspiration Precautions Recommended Precautions Alternate Liquids/Solids,Small Bites/Sips Additional Precautions eat slowly, chew foods well, add more liquid during the meal Treatment Plan Recommended Referrals GI Consult Therapy Strategy Recommendations Small Bites and Sips,Alternate Liquids/Solids
== END ==
DX: Z13.9 Encounter for screening, unspecified (principal); R13.10 Dysphagia, unspecified; G47.00 Insomnia, unspecified; K22.4 Dyskinesia of esophagus
CPT/HCPCS: 74230; 92611